=== PATIENT | female | born 1980 | race African-American/Black ===

== ENCOUNTER 2023-01-29 14:11 | Inpatient (IN) | payer MEDICAID, OTHER ==
[~2023-01-29] VITALS: Ht 157.5 cm; Wt 77.1 kg
[2023-01-29 15:01] LABS: BASOPHILS % 1.9 % (0.0-2.0); EOSINOPHILS % 1.2 % (0.0-5.0); HEMATOCRIT. 37.2 % (36.0-48.0); HEMOGLOBIN. 12.4 g/dL (12.0-16.0); LYMPHOCYTES % 33.9 % (20.0-50.0); MEAN CORPUSCULAR HEMOGLOBIN 27.3 pg (28.0-32.0); MEAN CORPUSCULAR VOLUME 82.3 fL (81.0-99.0); MEAN PLATELET VOLUME 8.1 fl (7.4-10.4); MONOCYTES % 13.1 % (2.0-8.0); NEUTROPHILS % 49.9 % (40.0-76.0); PLATELET 193 x1000/uL (130-400); RED BLOOD CELL COUNT 4.52 mill/uL (4.2-5.4); RED CELL DISTRIBUTION WIDTH 15.8 % (11.6-14.6)
[2023-01-29 15:05] LABS: CHLORIDE 110 mEq/L (98-107)
[2023-01-29 15:14] LABS: CREATINE KINASE 233 IU/L (26-192); ETHANOL BLOOD < 10 mg/dL
[2023-01-29 15:27] LABS: HCG SCREEN NEGATIVE
[2023-01-29 16:51] LABS: CLARITY URINE CLEAR (CLEAR); COLOR URINE YELLOW (YELLOW); KETONES URINE NEGATIVE (NEGATIVE); LEUKOCYTE ESTERASE URINE TRACE (NEGATIVE); NITRITE URINE NEGATIVE (NEGATIVE); OCCULT BLOOD URINE 1+ (NEGATIVE); PH URINE 6.5 (4.5-8.0); PROTEIN URINE NEGATIVE (NEGATIVE); UROBILINOGEN URINE 0.2 E.U./dL (0.2-1.0)
[2023-01-29 17:04] LABS: *AMPHETAMINES SCREEN URINE NEGATIVE (NEGATIVE); *BARBITURATES SCREEN URINE NEGATIVE (NEGATIVE); *BENZODIAZEPINES SCREEN URINE NEGATIVE (NEGATIVE); *COCAINE SCREEN URINE NEGATIVE (NEGATIVE); CANNABINOID URINE SCREEN NEGATIVE (NEGATIVE); METHADONE URINE SCREEN NEGATIVE (NEGATIVE); OPIATES URINE SCREEN NEGATIVE (NEGATIVE); PHENCYCLIDINE URINE SCREEN NEGATIVE (NEGATIVE)
[2023-01-29] MEDS ORDERED: AMMONIA INHALATION 1EA INH ONE (18:30)
[2023-01-29] MEDS ORDERED: LEVETIRACETAM 1,500 MG in SODIUM CHLORIDE 0.9% 100 ML IV STA (19:08)
[2023-01-29] MEDS ORDERED: LORAZEPAM 2MG/ML CPJ IV ONE (19:15)
[2023-01-30] VITALS (7 sets, daily range): BP systolic 94–121; BP diastolic 41–81
[2023-01-30] MEDS ORDERED: NALOXONE HCL 0.4MG/ML VIAL IV PRN (08:30)
[2023-01-30] MEDS ORDERED: IPRATROPIUM/ALBUTEROL 0.5-3(2.5)MG/3ML NEB HHN PRN (08:30)
[2023-01-30] MEDS ORDERED: DOCUSATE SODIUM 100MG CAPSULE PO PRN (08:30)
[2023-01-30] MEDS ORDERED: ACETAMINOPHEN 325MG TABLET PO PRN (08:30)
[2023-01-30] MEDS ORDERED: ALBUTEROL (0.083%) 2.5MG/3ML NEB HHN PRN (08:30)
[2023-01-30] MEDS ORDERED: ONDANSETRON HCL 4MG/2ML INJ IV PRN (08:30)
[2023-01-30] MEDS ORDERED: LORAZEPAM 0.5MG TABLET PO PRN (08:30)
[2023-01-30] MEDS ORDERED: CLONIDINE 0.1MG TABLET PO PRN (08:30)
[2023-01-30] MEDS ORDERED: IPRATROPIUM BROMIDE (0.02%) 0.5MG/2.5ML NEB HHN PRN (08:30)
[2023-01-30] MEDS: LIDOCAINE 5% PATCH TOP SCH (13:37)
[2023-01-30] MEDS: ACETAMINOPHEN 325MG TABLET PO PRN (15:57)
[2023-01-31] VITALS: BP 98/52
[2023-01-31] MEDS: ACETAMINOPHEN 325MG TABLET PO PRN (00:52)
[2023-01-31 04:00] VITALS: BP 110/60
[2023-01-31 06:12] LABS: BASOPHILS % 0.6 % (0.0-2.0); EOSINOPHILS % 2.2 % (0.0-5.0); HEMATOCRIT. 38.7 % (36.0-48.0); HEMOGLOBIN. 13.1 g/dL (12.0-16.0); LYMPHOCYTES % 39.6 % (20.0-50.0); MEAN CORPUSCULAR HEMOGLOBIN 27.6 pg (28.0-32.0); MEAN CORPUSCULAR VOLUME 81.5 fL (81.0-99.0); MEAN PLATELET VOLUME 8.4 fl (7.4-10.4); MONOCYTES % 12.6 % (2.0-8.0); PLATELET 189 x1000/uL (130-400); RED BLOOD CELL COUNT 4.75 mill/uL (4.2-5.4); RED CELL DISTRIBUTION WIDTH 15.6 % (11.6-14.6)
[2023-01-31 07:33] LABS: CHLORIDE 110 mEq/L (98-107)
[2023-01-31 08:00] VITALS: BP 126/74
[2023-01-31] MEDS: LIDOCAINE 5% PATCH TOP SCH ×2 (08:17→08:18)
[2023-01-31 12:00] VITALS: BP 100/52
[2023-01-31 16:00] VITALS: BP 104/63
[2023-01-31] MEDS: ARIPIPRAZOLE 5MG TABLET PO SCH (17:15)
[2023-01-31] MEDS: CITALOPRAM HYDROBROMIDE 10MG TABLET PO SCH (17:16)
[2023-01-31 20:00] VITALS: BP 110/66
[2023-02-01] VITALS: BP 134/69
[2023-02-01 04:00] VITALS: BP 110/67
[2023-02-01] MEDS: HYDROCODONE/ACETAMINOPHEN 5/325MG TABLET PO PRN ×2 (05:48→20:14)
[2023-02-01 08:00] VITALS: BP 112/55
[2023-02-01] MEDS: LIDOCAINE 5% PATCH TOP SCH (09:00)
[2023-02-01] MEDS: CITALOPRAM HYDROBROMIDE 10MG TABLET PO SCH ×3 (09:00→11:31)
[2023-02-01] MEDS: ARIPIPRAZOLE 5MG TABLET PO SCH ×3 (10:31→11:31)
[2023-02-01 12:00] VITALS: BP 127/63
[2023-02-01 16:00] VITALS: BP 127/63
[2023-02-01 16:56] LABS: T4 FREE 1.11 ng/dL (0.76-1.46)
[2023-02-01 20:00] VITALS: BP 127/65
[2023-02-02] VITALS: BP 110/39
[2023-02-02 08:00] VITALS: BP 108/59
[2023-02-02 08:08] LABS: HIV SCREEN 4G Non Reactive (Non Reactive)
[2023-02-02] MEDS: HYDROCODONE/ACETAMINOPHEN 5/325MG TABLET PO PRN (09:20)
[2023-02-02] MEDS: LIDOCAINE 5% PATCH TOP SCH (09:20)
[2023-02-02 12:23] VITALS: BP 113/58
[2023-02-02 16:32] VITALS: BP 112/62
[2023-02-02 20:00] VITALS: BP 111/59
[2023-02-03] VITALS: BP 105/53
[2023-02-03 04:00] VITALS: BP 101/62
[2023-02-03 04:11] LABS: QFT MITOGEN VALUE >10.00 IU/mL (.); QFT TB GOLD PLUS Negative (Negative); QFT TB1 AG VALUE 0.03 IU/mL (.)
[2023-02-03 06:56] LABS: HEMATOCRIT. 42.3 % (36.0-48.0); MEAN CORPUSCULAR HEMOGLOBIN 27.3 pg (28.0-32.0); MEAN CORPUSCULAR VOLUME 82.6 fL (81.0-99.0); MEAN PLATELET VOLUME 8.3 fl (7.4-10.4); PLATELET 199 x1000/uL (130-400); RED BLOOD CELL COUNT 5.13 mill/uL (4.2-5.4); RED CELL DISTRIBUTION WIDTH 15.7 % (11.6-14.6)
[2023-02-03 08:00] VITALS: BP 110/72
[2023-02-03 08:07] LABS: CHLORIDE 108 mEq/L (98-107)
[2023-02-03] MEDS: ARIPIPRAZOLE 5MG TABLET PO SCH (09:35)
[2023-02-03] MEDS: CITALOPRAM HYDROBROMIDE 10MG TABLET PO SCH (09:36)
[2023-02-03] MEDS: HYDROCODONE/ACETAMINOPHEN 5/325MG TABLET PO PRN ×3 (09:52→22:22)
[2023-02-03 12:00] VITALS: BP 100/51
[2023-02-03 12:20] LABS: PLATELET ESTIMATE NORMAL
[2023-02-03 16:00] VITALS: BP 127/66
[2023-02-03 20:00] VITALS: BP 106/58
[2023-02-04] VITALS: BP 99/54
[2023-02-04 04:00] VITALS: BP 99/61
[2023-02-04 08:00] VITALS: BP 98/46
[2023-02-04] MEDS: CITALOPRAM HYDROBROMIDE 10MG TABLET PO SCH (09:06)
[2023-02-04] MEDS: ARIPIPRAZOLE 5MG TABLET PO SCH (09:07)
[2023-02-04] MEDS: LIDOCAINE 5% PATCH TOP SCH (09:14)
[2023-02-04 12:00] VITALS: BP 112/70
[2023-02-04 16:00] VITALS: BP 111/61
[2023-02-04 20:00] VITALS: BP 101/55
[2023-02-05] VITALS: BP 103/50
[2023-02-05 04:00] VITALS: BP 100/62
[2023-02-05 08:00] VITALS: BP 105/60
[2023-02-05] MEDS: CITALOPRAM HYDROBROMIDE 10MG TABLET PO SCH (09:10)
[2023-02-05] MEDS: ARIPIPRAZOLE 5MG TABLET PO SCH (09:13)
[2023-02-05] MEDS: LIDOCAINE 5% PATCH TOP SCH (09:17)
[2023-02-05] MEDS: HYDROCODONE/ACETAMINOPHEN 5/325MG TABLET PO PRN ×2 (09:31→16:04)
[2023-02-05 12:00] VITALS: BP 90/69
[2023-02-05] MEDS ORDERED: NALOXONE HCL 0.4MG/ML VIAL IV PRN (15:30)
[2023-02-05 18:00] VITALS: BP 121/61
[2023-02-05 20:00] VITALS: BP 96/59
[2023-02-06] VITALS: BP 96/66
[2023-02-06 08:00] VITALS: BP 112/62
[2023-02-06] MEDS: LIDOCAINE 5% PATCH TOP SCH (09:00)
[2023-02-06] MEDS: CITALOPRAM HYDROBROMIDE 10MG TABLET PO SCH (09:32)
[2023-02-06] MEDS: ARIPIPRAZOLE 5MG TABLET PO SCH (09:32)
[2023-02-06] MEDS: HYDROCODONE/ACETAMINOPHEN 5/325MG TABLET PO PRN ×3 (09:33→21:55)
[2023-02-06 12:00] VITALS: BP 91/42
[2023-02-06 16:00] VITALS: BP 111/61
[2023-02-06 20:00] VITALS: BP 102/60
[2023-02-07] MEDS: HYDROCODONE/ACETAMINOPHEN 5/325MG TABLET PO PRN (08:00)
[2023-02-07] MEDS: CITALOPRAM HYDROBROMIDE 10MG TABLET PO SCH (08:01)
[2023-02-07] MEDS: ARIPIPRAZOLE 5MG TABLET PO SCH (08:01)
[2023-02-07] MEDS: LIDOCAINE 5% PATCH TOP SCH (09:00)
[2023-02-07] MEDS ORDERED: HALOPERIDOL LACTATE 5MG/ML VIAL IM PRN (18:00)
[2023-02-07] MEDS ORDERED: QUETIAPINE FUMARATE 50MG TABLET PO SCH (21:00)
[2023-02-08 08:00] VITALS: BP 125/77
[2023-02-08] MEDS: CITALOPRAM HYDROBROMIDE 10MG TABLET PO SCH ×2 (11:00→11:12)
[2023-02-08] MEDS: ARIPIPRAZOLE 5MG TABLET PO SCH ×2 (11:00→11:12)
[2023-02-08] MEDS: LIDOCAINE 5% PATCH TOP SCH (11:02)
[2023-02-08] MEDS: HYDROCODONE/ACETAMINOPHEN 5/325MG TABLET PO PRN (11:05)
[2023-02-08 12:00] VITALS: BP 107/79
[2023-02-08 14:36] VITALS: BP 107/79
[2023-02-08 16:00] VITALS: BP 145/87
[2023-02-08] MEDS ORDERED: QUET200T30 PO (16:27)
[2023-02-08] MEDS ORDERED: CITA10TA16 PO (16:27)
[2023-02-08] MEDS ORDERED: QUETIAPINE FUMARATE 200MG TABLET PO SCH (21:00)
[2023-02-09] MEDS: CITALOPRAM HYDROBROMIDE 10MG TABLET PO SCH (08:33)
[2023-02-09 08:39] VITALS: BP 107/56
[2023-02-09] MEDS: LIDOCAINE 5% PATCH TOP SCH (08:39)
== END 2023-02-09 11:30 | disposition home or self-care (01) | DRG 52 ==
LOC: ER 14:21 → 7EST 20:00 → ENRESERV 01-30 01:04 → 6EST 02-02 17:06
PROVIDERS: ADMIT Internal Medicine; ATTEND Internal Medicine
DX: G92.9 Unspecified toxic encephalopathy (principal); D72.821 Monocytosis (symptomatic); M94.0 Chondrocostal junction syndrome [Tietze]; Z20.822 Contact with and (suspected) exposure to COVID-19; F23 Brief psychotic disorder; F31.9 Bipolar disorder, unspecified; Z59.00 Homelessness unspecified; Z91.14 Patient's other noncompliance with medication regimen; Z59.01 Sheltered homelessness; Z88.0 Allergy status to penicillin; Z91.52 Personal history of nonsuicidal self-harm
CPT/HCPCS: 36415; 71045; 80048; 80053; 80305; 80307; 80320; 80329; 81003; 82550; 82962; 83605; 84145; 84439; 84443; 84481; 84484; 84703; 85025; 86480; 87389; 87426; 93005; 94640; 97161; 97165; 99291; J1953; J2060; J2405; J7050; G0480

== ENCOUNTER 2023-02-15 17:10 | Emergency (ER) | payer OTHER ==
[~2023-02-15] VITALS: Ht 160 cm; Wt 62.0 kg
[~2023-02-15 17:10] MED LIST: CITA10TA16 PO; QUET200T30 PO
[2023-02-15 19:00] VITALS: BP 129/69
[2023-02-15] MEDS ORDERED: IBUPROFEN 600MG TABLET PO ONE (19:00)
[2023-02-15] MEDS ORDERED: IBUP-2029 MT (20:43)
== END 2023-02-15 21:04 | disposition home or self-care (01) ==
LOC: ER 17:10
DX: S76.211A Strain of adductor muscle, fascia and tendon of right thigh, initial encounter (principal); Z88.0 Allergy status to penicillin; X58.XXXA Exposure to other specified factors, initial encounter; Y93.89 Activity, other specified; Y92.89 Other specified places as the place of occurrence of the external cause; Y99.8 Other external cause status
CPT/HCPCS: 99283

== ENCOUNTER 2023-02-21 07:09 | Inpatient (IN) | payer OTHER ==
[~2023-02-21] VITALS: Ht 154.9 cm; Wt 66.2 kg
[~2023-02-21 07:09] MED LIST changes: +IBUP-2029 MT
[2023-02-21] MEDS ORDERED: ACETAMINOPHEN 325MG TABLET PO ONE (07:15)
[2023-02-21 09:09] LABS: BASOPHILS % 0.8 % (0.0-2.0); EOSINOPHILS % 1.5 % (0.0-5.0); HEMATOCRIT. 37.1 % (36.0-48.0); HEMOGLOBIN. 12.3 g/dL (12.0-16.0); LYMPHOCYTES % 37.6 % (20.0-50.0); MEAN CORPUSCULAR HEMOGLOBIN 27.8 pg (28.0-32.0); MEAN CORPUSCULAR VOLUME 83.6 fL (81.0-99.0); MEAN PLATELET VOLUME 7.5 fl (7.4-10.4); MONOCYTES % 10.4 % (2.0-8.0); NEUTROPHILS % 49.7 % (40.0-76.0); PLATELET 244 x1000/uL (130-400); RED BLOOD CELL COUNT 4.43 mill/uL (4.2-5.4); RED CELL DISTRIBUTION WIDTH 16.7 % (11.6-14.6)
[2023-02-21 09:14] LABS: CHLORIDE 107 mEq/L (98-107)
[2023-02-21 09:19] LABS: INR 0.9; PROTHROMBIN TIME 10.2 sec (9.6-11.0)
[2023-02-21] MEDS ORDERED: HYDROCODONE/ACETAMINOPHEN 5/325MG TABLET PO ONE (10:45)
[2023-02-21] MEDS ORDERED: KETOROLAC 30MG/ML VIAL IV PRN (17:15)
[2023-02-21] MEDS ORDERED: ONDANSETRON HCL 4MG/2ML INJ IV PRN (17:15)
[2023-02-21] MEDS ORDERED: ACETAMINOPHEN 325MG TABLET PO PRN (17:15)
[2023-02-21 18:00] VITALS: BP 119/63
[2023-02-21 20:00] VITALS: BP 131/77
[2023-02-22] VITALS: BP 122/61
[2023-02-22 08:00] VITALS: BP 118/71
[2023-02-22 16:00] VITALS: BP 108/70
[2023-02-22 20:00] VITALS: BP 128/78
[2023-02-22] MEDS ORDERED: QUETIAPINE FUMARATE 50MG TABLET PO SCH (21:00)
[2023-02-22] MEDS: SERTRALINE HCL 25MG TABLET PO SCH (21:39)
[2023-02-23] VITALS: BP 122/74
[2023-02-23 04:00] VITALS: BP 98/55
[2023-02-23] MEDS: SERTRALINE HCL 25MG TABLET PO SCH (09:00)
== END 2023-02-23 09:50 | disposition home or self-care (01) | DRG 351 ==
LOC: ER 07:09 → 6EST 11:03 → EDBEDREQ 11:22 → EDBEDREQTM 11:22 → EDBEDREQ 11:23
PROVIDERS: ADMIT Internal Medicine; ATTEND Internal Medicine
DX: M79.604 Pain in right leg (principal); F33.1 Major depressive disorder, recurrent, moderate; F41.9 Anxiety disorder, unspecified; G47.00 Insomnia, unspecified; Z59.00 Homelessness unspecified; Z88.0 Allergy status to penicillin
CPT/HCPCS: 36415; 73552; 73590; 73620; 76857; 80053; 85025; 93970; 99285; J1885